=== PATIENT | female | born 1950 | race Caucasian/White ===

== ENCOUNTER → 2017-05-08 | Day surgery (SDC) | payer BC ==
[2017-05-06 09:04] LABS: BASOPHILS % 0.1 % (0.0-1.0); EOSINOPHILS # (AUTO) 0.2 (0.0-0.4); EOSINOPHILS % 1.9 % (0.0-6.0); HEMATOCRIT 43.4 % (34.2-44.1); HEMOGLOBIN 14.9 g/dL (12.0-16.0); LYMPHOCYTES # (AUTO) 3.7 (1.0-3.2); LYMPHOCYTES % 44.1 % (18.0-39.1); MEAN CORPUSCULAR HEMOGLOBIN 30.2 pg (28-32); MEAN CORPUSCULAR HGB CONC 34.3 g/dL (31-35); MONOCYTES # (AUTO) 0.7 (0.2-0.8); MONOCYTES % 8.8 % (4.4-11.3); NEUTROPHILS # (AUTO) 3.7 (2.1-6.9); NEUTROPHILS % 44.7 % (38.7-80.0); PLATELET COUNT 171 x10e3/uL (140-360); RED BLOOD COUNT 4.93 x10e6/uL (3.6-5.1); RED CELL DISTRIBUTION WIDTH 12.4 % (11.7-14.4)
[~2017-05-08] MED LIST: AMLODIPINE BESY10 MG PO; FENTANYL CITRATE/PF 100MCG/2 ML INJ ONE; IOPAMIDOL 200 MG/ML 20 ML VIAL IT ONE; LIDOCAINE HCL 1% 30ML-PF VIAL ONE; LIDOCAINE HCL 2% LOCAL INJ 5 ML SDV VIAL INJ ONE; METOPROLOL TART25 MG PO; MIDAZOLAM HCL 2 MG/2 ML VIAL ONE; NEXIUM40 MG PO; NORCO 10-325 T1 EACH PO; PANTOPRAZOLE SO40 MG PO; PROPOFOL IV EMULSION 10 MG/ML 20 ML VIAL ONE; TRIAMCINOLONE ACET 40 MG/ML VIAL ONE; TYLENOL WITH C1 EAC1 PO
== END | disposition home or self-care (01) ==
LOC: OR 06:12
PROVIDERS: ATTEND Physical Medicine & Rehabilitation Pain Medicine
DX: M47.16 Other spondylosis with myelopathy, lumbar region (principal); M47.817 Spondylosis without myelopathy or radiculopathy, lumbosacral region; G47.33 Obstructive sleep apnea (adult) (pediatric); I10 Essential (primary) hypertension; R00.1 Bradycardia, unspecified; K21.9 Gastro-esophageal reflux disease without esophagitis; E66.01 Morbid (severe) obesity due to excess calories; Z01.812 Encounter for preprocedural laboratory examination
CPT/HCPCS: 36415; 64493; 64494; 64495; 77003; 85025; J2001 ×2; J2250; J3301; Q9966

== ENCOUNTER → 2017-09-25 | Day surgery (SDC) | payer BC ==
[2017-09-23 13:19] LABS: BASOPHILS % 0.2 % (0.0-1.0); EOSINOPHILS # (AUTO) 0.3 (0.0-0.4); EOSINOPHILS % 4.5 % (0.0-6.0); HEMATOCRIT 41.6 % (34.2-44.1); HEMOGLOBIN 14.2 g/dL (12.0-16.0); LYMPHOCYTES # (AUTO) 2.8 (1.0-3.2); LYMPHOCYTES % 42.7 % (18.0-39.1); MEAN CORPUSCULAR HEMOGLOBIN 29.5 pg (28-32); MEAN CORPUSCULAR HGB CONC 34.1 g/dL (31-35); MEAN CORPUSCULAR VOLUME 86.5 fL (81-99); MONOCYTES # (AUTO) 0.8 (0.2-0.8); MONOCYTES % 11.6 % (4.4-11.3); NEUTROPHILS # (AUTO) 2.7 (2.1-6.9); NEUTROPHILS % 40.8 % (38.7-80.0); PLATELET COUNT 170 x10e3/uL (140-360); RED BLOOD COUNT 4.81 x10e6/uL (3.6-5.1); RED CELL DISTRIBUTION WIDTH 12.2 % (11.7-14.4)
[~2017-09-25] MED LIST changes: +FENTANYL CITRATE/PF 100MCG/2 ML INJ IJ ONE; -FENTANYL CITRATE/PF 100MCG/2 ML INJ ONE; +LIDOCAINE HCL 1% 30ML-PF VIAL INJ ONE; -LIDOCAINE HCL 1% 30ML-PF VIAL ONE; +MIDAZOLAM HCL 2 MG/2 ML VIAL INJ ONE; -MIDAZOLAM HCL 2 MG/2 ML VIAL ONE; +PROPOFOL IV EMULSION 10 MG/ML 20 ML VIAL IV ONE; -PROPOFOL IV EMULSION 10 MG/ML 20 ML VIAL ONE; +TRIAMCINOLONE ACET 40 MG/ML VIAL IM ONE; -TRIAMCINOLONE ACET 40 MG/ML VIAL ONE
== END | disposition home or self-care (01) ==
LOC: OR 07:35
PROVIDERS: ATTEND Physical Medicine & Rehabilitation Pain Medicine
DX: M47.816 Spondylosis without myelopathy or radiculopathy, lumbar region (principal); M54.16 Radiculopathy, lumbar region; M46.1 Sacroiliitis, not elsewhere classified; G47.33 Obstructive sleep apnea (adult) (pediatric); I10 Essential (primary) hypertension; Z01.810 Encounter for preprocedural cardiovascular examination; Z01.812 Encounter for preprocedural laboratory examination; Z68.33 Body mass index [BMI] 33.0-33.9, adult
CPT/HCPCS: 36415; 64493; 64494; 64495; 85025; 93005; J2001 ×2; J2250; J3301; Q9966; 77003

== ENCOUNTER 2021-12-25 03:18 | Inpatient (IN) | payer BC ==
[~2021-12-25] VITALS: Ht 165.1 cm; Wt 99.8 kg
[~2021-12-25 03:18] MED LIST changes: -FENTANYL CITRATE/PF 100MCG/2 ML INJ IJ ONE; -IOPAMIDOL 200 MG/ML 20 ML VIAL IT ONE; -LIDOCAINE HCL 1% 30ML-PF VIAL INJ ONE; -LIDOCAINE HCL 2% LOCAL INJ 5 ML SDV VIAL INJ ONE; -MIDAZOLAM HCL 2 MG/2 ML VIAL INJ ONE; -PROPOFOL IV EMULSION 10 MG/ML 20 ML VIAL IV ONE; -TRIAMCINOLONE ACET 40 MG/ML VIAL IM ONE
[2021-12-25] MEDS ORDERED: ACETAMINOPHEN 325 MG TAB PO STA (03:25)
[2021-12-25] MEDS ORDERED: DEXAMETHASONE SOD PHOS 10 MG/1 ML VIAL IV ONE (03:30)
[2021-12-25 03:41] LABS: BASOPHILS % 0.1 % (0.0-1.0); EOSINOPHILS % 0.4 % (0.0-6.0); HEMATOCRIT 42.4 % (34.2-44.1); HEMOGLOBIN 13.8 g/dL (12.0-16.0); LYMPHOCYTES # (AUTO) 2.4 (1.0-3.2); LYMPHOCYTES % 22.5 % (18.0-39.1); MEAN CORPUSCULAR HGB CONC 32.5 g/dL (31-35); MEAN CORPUSCULAR VOLUME 92.2 fL (81-99); MONOCYTES # (AUTO) 1.3 (0.2-0.8); MONOCYTES % 11.9 % (4.4-11.3); NEUTROPHILS % 64.9 % (38.7-80.0); PLATELET COUNT 178 x10e3/uL (140-360); RED CELL DISTRIBUTION WIDTH 12.7 % (11.7-14.4)
[2021-12-25 04:00] LABS: ALBUMIN 3.4 g/dL (3.5-5.0); ALBUMIN/GLOBULIN RATIO 0.8 (0.8-2.0); ANION GAP 15.2 mmol/L (8-16); CALCIUM 8.3 mg/dL (8.4-10.2); CREATININE, SERUM 1.1 mg/dL (0.57-1.11); POTASSIUM 4.2 mmol/L (3.5-5.1)
[2021-12-25 04:07] LABS: CREATINE KINASE MB 0.8 ng/mL (0-5.0)
[2021-12-25] MEDS ORDERED: IOPAMIDOL 370 MG/ML 100 ML INFUS..BTL INJ ONE (04:29)
[2021-12-25] MEDS ORDERED: ACETAMINOPHEN 325 MG TAB PO PRN (04:45)
[2021-12-25 11:21] VITALS: BP 98/62
[2021-12-25 11:29] VITALS: BP 98/62
[2021-12-25 13:12] VITALS: BP 136/70
[2021-12-25] MEDS: CEFTRIAXONE 2 GM in SODIUM CHLORIDE 0.9% 100 ML IV SCH (15:00)
[2021-12-25 16:02] VITALS: BP 126/65
[2021-12-25] MEDS ORDERED: HYDROMORPHONE 1MG/1ML INJ IV PRN (17:15)
[2021-12-25 20:00] VITALS: BP 137/68
[2021-12-25] MEDS: ENOXAPARIN 30 MG/0.3 ML SYR SC SCH (20:21)
[2021-12-25] MEDS: PANTOPRAZOLE SOD 40 MG TABEC PO SCH (20:21)
[2021-12-25] MEDS: METOPROLOL TARTRATE 25 MG TAB PO SCH (20:21)
[2021-12-25] MEDS: AMLODIPINE BESYLATE 10 MG TAB PO SCH (20:21)
[2021-12-26] VITALS (9 sets, daily range): BP systolic 125–135; BP diastolic 64–73
[2021-12-26 06:23] LABS: BASOPHILS % 0.1 % (0.0-1.0); HEMATOCRIT 38.7 % (34.2-44.1); LYMPHOCYTES # (AUTO) 1.4 (1.0-3.2); LYMPHOCYTES % 15.5 % (18.0-39.1); MEAN CORPUSCULAR HEMOGLOBIN 30.3 pg (28-32); MEAN CORPUSCULAR HGB CONC 33.6 g/dL (31-35); MEAN CORPUSCULAR VOLUME 90.2 fL (81-99); MONOCYTES # (AUTO) 0.7 (0.2-0.8); MONOCYTES % 7.2 % (4.4-11.3); NEUTROPHILS % 76.7 % (38.7-80.0); PLATELET COUNT 178 x10e3/uL (140-360); RED BLOOD COUNT 4.29 x10e6/uL (3.6-5.1); RED CELL DISTRIBUTION WIDTH 12.3 % (11.7-14.4)
[2021-12-26 07:11] LABS: ALBUMIN 3.1 g/dL (3.5-5.0); ALBUMIN/GLOBULIN RATIO 0.8 (0.8-2.0); ANION GAP 12.3 mmol/L (8-16); CALCIUM 8.2 mg/dL (8.4-10.2); POTASSIUM 4.3 mmol/L (3.5-5.1)
[2021-12-26 08:05] LABS: CREATINE KINASE 69 IU/L (29-168)
[2021-12-26] MEDS: ZINC SULFATE 50 MG CAP PO SCH (09:09)
[2021-12-26] MEDS: ASCORBIC ACID 500 MG TAB PO SCH ×2 (09:09→17:10)
[2021-12-26] MEDS: ENOXAPARIN 30 MG/0.3 ML SYR SC SCH ×2 (09:09→21:43)
[2021-12-26] MEDS: CEFTRIAXONE 2 GM in SODIUM CHLORIDE 0.9% 100 ML IV SCH (09:09)
[2021-12-26 15:00] LABS: CREATINE KINASE 71 IU/L (29-168)
[2021-12-26] MEDS: PANTOPRAZOLE SOD 40 MG TABEC PO SCH (21:43)
[2021-12-26] MEDS: METOPROLOL TARTRATE 25 MG TAB PO SCH (21:43)
[2021-12-26] MEDS: AMLODIPINE BESYLATE 10 MG TAB PO SCH (21:43)
[2021-12-26] MEDS: ACETAMINOPHEN/CODEINE 300MG - 30MG TAB PO PRN (22:42)
[2021-12-27] VITALS: BP 119/77
[2021-12-27] MEDS: ACETAMINOPHEN/CODEINE 300MG - 30MG TAB PO PRN ×2 (03:43→10:00)
[2021-12-27 04:00] VITALS: BP 123/55
[2021-12-27 07:30] LABS: BASOPHILS % 0.1 % (0.0-1.0); HEMATOCRIT 40.5 % (34.2-44.1); HEMOGLOBIN 13.2 g/dL (12.0-16.0); LYMPHOCYTES # (AUTO) 3.2 (1.0-3.2); LYMPHOCYTES % 31.7 % (18.0-39.1); MEAN CORPUSCULAR HEMOGLOBIN 29.9 pg (28-32); MEAN CORPUSCULAR HGB CONC 32.6 g/dL (31-35); MEAN CORPUSCULAR VOLUME 91.8 fL (81-99); MONOCYTES # (AUTO) 0.6 (0.2-0.8); MONOCYTES % 5.8 % (4.4-11.3); NEUTROPHILS # (AUTO) 6.4 (2.1-6.9); NEUTROPHILS % 62.1 % (38.7-80.0); PLATELET COUNT 196 x10e3/uL (140-360); RED BLOOD COUNT 4.41 x10e6/uL (3.6-5.1); RED CELL DISTRIBUTION WIDTH 12.4 % (11.7-14.4)
[2021-12-27 07:50] LABS: ALBUMIN 3.1 g/dL (3.5-5.0); ALBUMIN/GLOBULIN RATIO 0.8 (0.8-2.0); ANION GAP 13.1 mmol/L (8-16); CALCIUM 8.6 mg/dL (8.4-10.2); CREATININE, SERUM 0.9 mg/dL (0.57-1.11); POTASSIUM 4.1 mmol/L (3.5-5.1)
[2021-12-27 07:58] VITALS: BP 123/54
[2021-12-27] MEDS ORDERED: LACTOBACILLUS ACIDOPHILUS CAPSULE PO SCH (09:00)
[2021-12-27] MEDS ORDERED: AZITHROMYCIN 250 MG TAB PO SCH (09:00)
[2021-12-27] MEDS: ENOXAPARIN 30 MG/0.3 ML SYR SC SCH (09:50)
[2021-12-27] MEDS: CEFTRIAXONE 2 GM in SODIUM CHLORIDE 0.9% 100 ML IV SCH (09:50)
[2021-12-27] MEDS: ZINC SULFATE 50 MG CAP PO SCH (09:50)
[2021-12-27] MEDS: ASCORBIC ACID 500 MG TAB PO SCH (09:50)
[2021-12-27 11:28] VITALS: BP 125/70
[2021-12-27] MEDS ORDERED: DEXAMETHASONE4 MG PO ×2 (16:08→16:09)
[2021-12-27] MEDS ORDERED: LEVOFLOXACIN250 MG PO (16:11)
[2021-12-27 16:44] VITALS: BP 147/76
== END 2021-12-27 17:31 | disposition home or self-care (01) | DRG 177 ==
LOC: ER 03:26 → OBSVTOIN 04:37 → ERHOLD 04:37 → MED/SURG2 10:45
PROC: 8E0ZXY6 Isolation (ICD-10-PCS; principal; 2021-12-25)
DX: U07.1 COVID-19 (principal); J12.82 Pneumonia due to coronavirus disease 2019; G89.29 Other chronic pain; K21.9 Gastro-esophageal reflux disease without esophagitis; R09.02 Hypoxemia; I12.9 Hypertensive chronic kidney disease with stage 1 through stage 4 chronic kidney disease, or unspecified chronic kidney disease; N18.9 Chronic kidney disease, unspecified; M19.90 Unspecified osteoarthritis, unspecified site; Z90.5 Acquired absence of kidney; E66.9 Obesity, unspecified; Z68.36 Body mass index [BMI] 36.0-36.9, adult
CPT/HCPCS: 36415; 71045; 80053; 82550; 82553; 83518; 83605; 83880; 84484; 85025; 87040; 87070; 93005; 94760; 94799; 99284; J0456; J0696; J1100; J1170; J1650; J2543; J7050; Q9967

== ENCOUNTER 2024-09-03 18:43 | Inpatient (IN) | payer MEDICARE ==
[~2024-09-03] VITALS: Ht 165.1 cm; Wt 97.1 kg
[~2024-09-03 18:43] MED LIST changes: +CEFDINIR300 MG PO; +DEXAMETHASONE4 MG PO; +LEVOFLOXACIN250 MG PO; +ONDANSETRON ODT4 MG PO
[2024-09-03 19:09] VITALS: RESP 18; TEMP 98.7
[2024-09-03 19:21] LABS: BASOPHILS % 0.1 % (0.0-1.0); EOSINOPHILS # (AUTO) 0.3 (0.0-0.4); EOSINOPHILS % 4.2 % (0.0-6.0); HEMATOCRIT 38.5 % (34.2-44.1); HEMOGLOBIN 12.9 g/dL (12.0-16.0); LYMPHOCYTES # (AUTO) 2.5 (1.0-3.2); LYMPHOCYTES % 33.6 % (18.0-39.1); MEAN CORPUSCULAR HEMOGLOBIN 30.1 pg (28-32); MEAN CORPUSCULAR HGB CONC 33.5 g/dL (31-35); MEAN CORPUSCULAR VOLUME 89.7 fL (81-99); MONOCYTES # (AUTO) 0.8 (0.2-0.8); MONOCYTES % 10.4 % (4.4-11.3); NEUTROPHILS # (AUTO) 3.8 (2.1-6.9); NEUTROPHILS % 51.3 % (38.7-80.0); PLATELET COUNT 174 x10e3/uL (140-360); RED BLOOD COUNT 4.29 x10e6/uL (3.6-5.1); RED CELL DISTRIBUTION WIDTH 12.5 % (11.7-14.4); WHITE BLOOD COUNT 7.39 x10e3/uL (4.8-10.8)
[2024-09-03 19:34] LABS: INR 0.84
[2024-09-03 19:44] LABS: ALBUMIN 3.4 g/dL (3.5-5.0); ALBUMIN/GLOBULIN RATIO 1.1 (0.8-2.0); ANION GAP 15.5 mmol/L (8-16); BILIRUBIN,TOTAL 0.6 mg/dL (0.2-1.2); CALCIUM 8.8 mg/dL (8.4-10.2); CREATININE, SERUM 1.04 mg/dL (0.57-1.11); POTASSIUM 4.5 mmol/L (3.5-5.1); TOTAL PROTEIN 6.6 g/dL (6.5-8.1)
[2024-09-03] MEDS: SODIUM CHLORIDE 0.9% 1000ML 1,000 ML IV STA (19:45)
[2024-09-03 19:50] LABS: TROPONIN I 0.028 ng/mL (0-0.300)
[2024-09-03 19:51] LABS: CORONAVIRUS COVID-19 AG NEGATIVE (NEGATIVE); INFLUENZA A AG NEGATIVE (NEGATIVE); INFLUENZA B AG NEGATIVE (NEGATIVE)
[2024-09-03] MEDS ORDERED: IOPAMIDOL 370 MG/ML 100 ML INFUS..BTL INJ ONE (19:51)
[2024-09-03] MEDS: SODIUM CHLORIDE 0.9% 1000ML 1,000 ML IV SCH (21:30)
[2024-09-03 21:54] VITALS: PULSE 77; RESP 18; O2SAT 94
[2024-09-03 22:30] VITALS: PULSE 75
[2024-09-04] VITALS (11 sets, daily range): BP systolic 136–166; BP diastolic 61–90; PULSE 64–86; RESP 18–21; TEMP 97.9–98; O2SAT 96–100
[2024-09-04] MEDS ORDERED: ALTOPREV40 MG PO (03:45)
[2024-09-04 06:13] LABS: BASOPHILS % 0.4 % (0.0-1.0); EOSINOPHILS # (AUTO) 0.3 (0.0-0.4); EOSINOPHILS % 5.4 % (0.0-6.0); HEMATOCRIT 35.7 % (34.2-44.1); HEMOGLOBIN 11.7 g/dL (12.0-16.0); LYMPHOCYTES # (AUTO) 2.2 (1.0-3.2); LYMPHOCYTES % 38.7 % (18.0-39.1); MEAN CORPUSCULAR HEMOGLOBIN 29.8 pg (28-32); MEAN CORPUSCULAR HGB CONC 32.8 g/dL (31-35); MEAN CORPUSCULAR VOLUME 90.8 fL (81-99); MONOCYTES # (AUTO) 0.8 (0.2-0.8); MONOCYTES % 15.1 % (4.4-11.3); NEUTROPHILS # (AUTO) 2.2 (2.1-6.9); PLATELET COUNT 160 x10e3/uL (140-360); RED BLOOD COUNT 3.93 x10e6/uL (3.6-5.1); RED CELL DISTRIBUTION WIDTH 12.4 % (11.7-14.4); WHITE BLOOD COUNT 5.56 x10e3/uL (4.8-10.8)
[2024-09-04 06:39] LABS: ALBUMIN/GLOBULIN RATIO 1.1 (0.8-2.0); ANION GAP 13.1 mmol/L (8-16); BILIRUBIN,TOTAL 0.8 mg/dL (0.2-1.2); CALCIUM 8.4 mg/dL (8.4-10.2); CREATININE, SERUM 0.87 mg/dL (0.57-1.11); POTASSIUM 4.1 mmol/L (3.5-5.1); TOTAL PROTEIN 5.7 g/dL (6.5-8.1)
[2024-09-04 06:46] LABS: TROPONIN I 0.026 ng/mL (0-0.300)
[2024-09-04 14:32] LABS: CHOL/HDL RATIO 4.1 (3.0-3.6)
[2024-09-04] MEDS: METOPROLOL TARTRATE 25 MG TAB PO SCH (14:58)
[2024-09-04] MEDS: FAMOTIDINE 20 MG TAB PO SCH (14:58)
[2024-09-04 15:43] LABS: TROPONIN I 0.017 ng/mL (0-0.300)
[2024-09-04] MEDS: TRAMADOL HCL 50 MG TAB PO PRN (16:18)
[2024-09-04] MEDS: ENOXAPARIN SOD INJ 40 MG/0.4 ML SYR SC SCH (16:18)
[2024-09-04] MEDS: AMLODIPINE BESYLATE 10 MG TAB PO SCH (20:48)
[2024-09-05] VITALS: BP 146/68; PULSE 70; RESP 18; TEMP 97.6; O2SAT 95
[2024-09-05 08:00] VITALS: BP 142/73; PULSE 74; RESP 20; TEMP 97.9; O2SAT 98
[2024-09-05] MEDS: ASPIRIN 81 MG ENTERIC COATED PO SCH (08:09)
[2024-09-05] MEDS: SIMVASTATIN 20 MG TAB PO SCH (08:10)
[2024-09-05] MEDS: FAMOTIDINE 20 MG TAB PO ONE (08:10)
[2024-09-05 09:00] VITALS: BP 141/68; PULSE 61; RESP 18; TEMP 97; O2SAT 96
[2024-09-05] MEDS: METOPROLOL TARTRATE 25 MG TAB PO STA (10:38)
[2024-09-05 16:00] VITALS: BP 149/60; PULSE 65; RESP 19; TEMP 97.8; O2SAT 98
[2024-09-05 20:23] VITALS: BP 153/70; PULSE 66; RESP 18; TEMP 98; O2SAT 96
[2024-09-05 21:00] VITALS: BP 153/70; PULSE 66; RESP 18; TEMP 98; O2SAT 96
[2024-09-05] MEDS: METOPROLOL TARTRATE 50 MG TAB PO SCH (21:59)
[2024-09-06 04:00] VITALS: BP 140/64; PULSE 57; RESP 18; TEMP 97.9; O2SAT 95
[2024-09-06 09:00] VITALS: BP 129/61; PULSE 61; RESP 18; TEMP 97.9; O2SAT 95
[2024-09-06] MEDS: LORAZEPAM INJ 2 MG/ML VIAL IV ONE ×2 (09:43→15:47)
[2024-09-06 10:03] VITALS: BP 130/63; PULSE 59; RESP 17; TEMP 98.2; O2SAT 94
[2024-09-06 12:58] VITALS: BP 139/62; PULSE 62; RESP 17; TEMP 97.6; O2SAT 98
[2024-09-06 16:00] VITALS: BP 144/67; PULSE 59; RESP 17; TEMP 97.4; O2SAT 98
[2024-09-06] MEDS ORDERED: INSULIN LISPRO 100 UNIT/1 ML 3ML VIAL SQ SCH (16:00)
[2024-09-06] MEDS ORDERED: DEXTROSE 50% SYRINGE 50 ML IV PRN (16:00)
[2024-09-06] MEDS: INSULIN LISPRO 100 UNIT/1 ML 3ML VIAL SQ SCH (16:30)
[2024-09-06 20:00] VITALS: BP 159/77; PULSE 66; RESP 18; TEMP 97.3; O2SAT 96
[2024-09-07] VITALS (9 sets, daily range): BP systolic 117–140; BP diastolic 57–74; PULSE 59–71; RESP 16–20; TEMP 97.5–98.2; O2SAT 93–98
[2024-09-07 09:05] LABS: BASOPHILS % 0.3 % (0.0-1.0); EOSINOPHILS # (AUTO) 0.3 (0.0-0.4); EOSINOPHILS % 4.1 % (0.0-6.0); HEMATOCRIT 41.3 % (34.2-44.1); HEMOGLOBIN 13.9 g/dL (12.0-16.0); LYMPHOCYTES # (AUTO) 1.6 (1.0-3.2); LYMPHOCYTES % 23.3 % (18.0-39.1); MEAN CORPUSCULAR HEMOGLOBIN 30.1 pg (28-32); MEAN CORPUSCULAR HGB CONC 33.7 g/dL (31-35); MEAN CORPUSCULAR VOLUME 89.4 fL (81-99); MONOCYTES # (AUTO) 0.7 (0.2-0.8); MONOCYTES % 10.4 % (4.4-11.3); NEUTROPHILS # (AUTO) 4.3 (2.1-6.9); NEUTROPHILS % 61.6 % (38.7-80.0); PLATELET COUNT 178 x10e3/uL (140-360); RED BLOOD COUNT 4.62 x10e6/uL (3.6-5.1); RED CELL DISTRIBUTION WIDTH 12.4 % (11.7-14.4)
[2024-09-07 09:28] LABS: CALCIUM 8.8 mg/dL (8.4-10.2); CREATININE, SERUM 0.91 mg/dL (0.57-1.11)
[2024-09-07 09:37] LABS: MAGNESIUM 1.7 MG/DL (1.3-2.1); PHOSPHORUS 4.4 MG/DL (2.3-4.7)
[2024-09-07 09:57] LABS: THYROID STIMULATING HORMONE 2.909 uIU/mL (0.350-4.940)
[2024-09-07] MEDS: ACETAMINOPHEN 325 MG TAB PO PRN (20:37)
[2024-09-08 00:28] VITALS: RESP 18
[2024-09-08 03:50] VITALS: BP 129/74; PULSE 65; RESP 17; TEMP 97.8; O2SAT 94
[2024-09-08 09:00] VITALS: BP 137/69; PULSE 66; RESP 17; TEMP 97.8; O2SAT 94
[2024-09-08 09:04] VITALS: BP 137/69; PULSE 66; RESP 18; TEMP 97.9; O2SAT 95
== END 2024-09-08 09:59 | disposition home or self-care (01) | DRG 552 ==
LOC: ER 18:49 → ERHOLD 23:23 → MED/SURG2 23:48
PROVIDERS: ADMIT Internal Medicine; ATTEND Internal Medicine
DX: M48.02 Spinal stenosis, cervical region (principal); I69.354 Hemiplegia and hemiparesis following cerebral infarction affecting left non-dominant side; N17.9 Acute kidney failure, unspecified; G45.9 Transient cerebral ischemic attack, unspecified; I67.89 Other cerebrovascular disease; M47.892 Other spondylosis, cervical region; M50.322 Other cervical disc degeneration at C5-C6 level; M51.34 Other intervertebral disc degeneration, thoracic region; M51.369 Other intervertebral disc degeneration, lumbar region without mention of lumbar back pain or lower extremity pain; R29.810 Facial weakness; R20.0 Anesthesia of skin; R20.2 Paresthesia of skin; R26.89 Other abnormalities of gait and mobility; E86.0 Dehydration; R73.9 Hyperglycemia, unspecified; Z13.1 Encounter for screening for diabetes mellitus; I10 Essential (primary) hypertension; E78.5 Hyperlipidemia, unspecified; G43.909 Migraine, unspecified, not intractable, without status migrainosus; G89.29 Other chronic pain; F03.90 Unspecified dementia, unspecified severity, without behavioral disturbance, psychotic disturbance, mood disturbance, and anxiety; N28.89 Other specified disorders of kidney and ureter; K21.9 Gastro-esophageal reflux disease without esophagitis; E66.9 Obesity, unspecified; Z68.35 Body mass index [BMI] 35.0-35.9, adult; Z79.899 Other long term (current) drug therapy
CPT/HCPCS: 36415; 70496; 70498; 70551; 71045; 72141; 80048; 80053; 80061; 82550; 82948; 83036; 83690; 83735; 83880; 84100; 84443; 84484; 85025; 85610; 93005; 93306; 94799; 95819; 99284; J1650; J2060; J7030; Q9967